=== PATIENT | male | born 2000 | race Caucasian/White ===

== ENCOUNTER 2024-04-07 04:11 | Emergency (ER) | payer OTHER, SELFPAY ==
[2024-04-07 04:19] VITALS: BP 124/67; PULSE 76; RESP 16; TEMP 36.3; O2SAT 98; BMI 28.7
--- NOTE | 2024-04-07 04:30 | ED_ITS ---
HPI - General Adult General Chief complaint: Extremity Pain/Injury, Upper Stated complaint: drove pick through left hand Time Seen by Provider: 04/07/24 04:30 History of Present Illness HPI narrative: Patient c/o injury to left hand at 0030 tonight while at work. Patient had a metal pick inserted into his hand. Bleeding controlled. Patient denies pain. Normal ROM. CMS intact . 24-year-old man presenting to the emergency department after injuring his left hand at work. Works at [employer] and and they have slim mental pick hand will that is used in a variety of ways. Unfortunately he slipped and put it through the left hand. He is been contained. State finish out of shift. No peripheral numbness tingling or weakness. Able to verify that due for tetanus/Tdap this year. Review of Systems Status of ROS: Reports: 6 or more systems reviewed and unremarkable except as noted in History and below [facility] Social History Smoking Status: Unknown if ever smoked Non-prescribed substance use: denies use service: No Exam Narrative: Exam Narrative: Pleasant. NAD. Skin is warm and dry. Moving extremities without difficulty. Opens and closes left hand in question without difficulty. There is a puncture wound in the left thumb and index finger interspace that appears to have just continued through over length of an inch in half to 2 in. Not actively bleeding. There is some dried blood at entrance and exit. No significant hematoma. Again no apparent loss of function or sensation. Const: Vital Signs, click to edit/add: Vital Signs - 24 hr 04/07/24 04:19 Temperature 97.3 F L Pulse Rate [Left P ulse Oximeter] 76 Respiratory Rate 16 Blood Pressure [Ri ght Upper Arm] 124/67 Pulse Oximetry 98 Oxygen Delivery Me thod Room Air Documenting provider has reviewed patient's vital signs: yes Course Vital Signs Vital signs: Initial Vital Signs Temperature 97.3 F L 04/07/24 04:19 Temperature Source Temporal Artery Scan 04/07/24 04:19 Pulse Rate 76 04/07/24 04:19 Respiratory Rate 16 04/07/24 04:19 Blood Pressure 124/67 04/07/24 04:19 Blood Pressure Mean 86 04/07/24 04:19 Blood Pressure Position Semi-Fowlers 04/07/24 04:19 Pulse Oximetry 98 04/07/24 04:19 Oxygen Delivery Method Room Air 04/07/24 04:19 Vital Signs Temperature 97.3 F L 04/07/24 04:19 Pulse Rate 76 04/07/24 04:19 Respiratory Rate 16 04/07/24 04:19 Blood Pressure 124/67 04/07/24 04:19 Pulse Oximetry 98 04/07/24 04:19 Oxygen Delivery Method Room Air 04/07/24 04:19 Temperature 97.3 F L 04/07/24 04:19 Pulse Rate 76 04/07/24 04:19 Respiratory Rate 16 04/07/24 04:19 Blood Pressure 124/67 04/07/24 04:19 Pulse Oximetry 98 04/07/24 04:19 Oxygen Delivery Method Room Air 04/07/24 04:19 Medications Administered Medications: Discontinued Medications Generic Name Dose Route Start Last Admin Trade Name Freq PRN Reason Stop Dose Admin Diphtheria/Tetanus/Acell Pertussis 0.5 ml 04/07/24 04:45 04/07/24 05:02 Tetanus/Diphth/Pertussis 0.5 Ml Syringe IM 04/07/24 04:46 0.5 ml .ONCE ONE Administration Medical Decision Making MDM Narrative Medical decision making narrative: Wound is generally clean. At the entrance it measures about 3/16th of an inch of irregular puncture; I do not think this requires or would benefit from suturing, in fact probably better to leave it open. I do not think any imaging either is required. Does not sound as though there is concern of foreign body otherwise. And does not appear to have encroached on bony areas. Soaking here in antibiotic soap and water. Antibiotic ointment and bandage. Update Tdap. See patient discharge plan for further discussion Discharge Plan Discharge Clinical Impression: Puncture wound of hand Patient Disposition: Home w/ Parent or Adult Condition: Stable Instructions: Puncture Wound (ED) Additional Instructions: Recommendations are to soak your hand in warm soapy or Epsom salt water once or twice daily over the next 3 days. Watch for spreading redness after 2 days, marked increase in swelling/pain/heat, purulent drainage. Antibiotic ointment and Band-Aid for 4 days. Cover with Band-Aid probably over the next week generally. Follow Up/Referrals: Provider,Not a Local [Primary Care Provider] - Stand Alone Forms: [facility] Info Instructions
--- OUTSIDE RECORDS SUMMARY | 2024-04-07 04:48 | XMS_ITS | Encounter Summary ---
Author Organization [place] Address [facility] [place] [address] Care Team Providers Care Recruiting Scheduler Name Role Phone No Ref-Primary, Physician Primary Care Provider Sergo Toure MD Unavailable [phone] Alen Grant MD Unavailable [phone] Encounter Details Date Type Department Care Team (Late st Contact Info) Description 06/26/2020 [facility] [address] [address] [place] [address] [place] [address] Social History Tobacco Use Types Packs/Day Years Used Date Smoking Tobacco: Never Smokeless Tobacco: Never Alcohol Use Standard Drinks/Week Comments Never 0 (1 standard drink = 0.6 oz pur e alcohol) AUDIT-C Answer Date Recorded Q1: How often do you have a drink containing alc ohol? Never 12/22/2019 Average Number of Drinks Not on file 020 Frequency of Binge Drinking Not on file 12/01 Sex and Gender Information Value Date Recorded Sex Assigned at Not on file Gender Identity Not on file Sexual Orientation Not on file documented as of this encounter Plan of Treatment Not on file documented as of this encounter Visit Diagnoses Not on filedocumented in this encounter Care Teams Recruiting Scheduler Relationship Specialty Start Date End Date No Ref-Primary, Physician PCP - General 12/29/19 [place] [id number] [place] [address] Assigned PCP 12/10/19 05/17/22 Alen Grant MD [address] [place] [address] Assigned Musculoskeletal Provider 06/23/20 10/13/21 documented as of this encounter
--- OUTSIDE RECORDS SUMMARY | 2024-04-07 04:48 | XMS_ITS | Encounter Summary ---
Author Organization [place] Address [facility] [place] [address] Care Team Providers Care Project Design Engineer Name Role Phone No Ref-Primary, Physician Primary Care Provider Sergo Toure MD Unavailable [phone] Alen Grant MD Unavailable [phone] Encounter Details Date Type Department Care Team (Late st Contact Info) Description 10/20/2020 [facility] [address] [facility], [address] [place] [address] Gisela White ATC Social History Tobacco Use Types Packs/Day Years [...] on filedocumented in this encounter Care Teams Project Design Engineer Relationship Specialty Start Date End Date No Ref-Primary, Physician PCP - General 12/29/19 [place] [id number] [facility]michelesandra Veloz [place], [place] [id number] Assigned PCP 12/10/19 05/17/22 Alen Grant MD [address] [place] [address] Assigned Musculoskeletal Provider 06/23/20 10/13/21 documented as of this encounter
--- OUTSIDE RECORDS SUMMARY | 2024-04-07 04:48 | XMS_ITS | Referral Summary ---
Author Organization [place] Address [facility] [place] [address] Care Team Providers Care Outreach Professional Name Role Phone No Ref-Primary, Physician Primary Care Provider Allergies No known active allergies Medications Medication Sig Dispensed Refills Start Date End Date Status order for DMEIndications:Knee injury, right, initial encounter Equipment being ordered: pair of crutches 1 Device 12/22/2019 Active order for DMEIndications:Knee injury, right, initial encounter Equipment being ordered: knee sleeve 1 Device 12/22/2019 Active Active Problems Problem Noted Date Diagnosed Date Bucket-handle tear of latera l meniscus of right knee as current injury, initial encounter 2020 Overview: Added automatically from request for surgery [id number] Acute pain of right knee 2020 Overview: Added automatically from request for surgery [id number] Locked knee, right 2020 Overview: Added automatically from request for surgery [id number] Resolved Problems Problem Noted Date Diagnosed Date Resolved Date Tear of lateral cartilage or meniscus of knee, current 01/14/2020 09/21/2020 Aftercare following surgery of the musculoskeletal system 01/14/2020 09/21/2020 Immunizations Name Administration Dates Next Due Comvax (HIB/HepB) 01/06/2003,2002,03/08/20 02 DTAP (<7y) 03/17/2007, 3,2002, 002,2002 Influenza (IIV3) PF 09/08/2012,2002,2001 Influenza, seasonal, injectable, PF 06/10/2011 MMR 03/17/2007,01/06/2003 Meningococcal ACWY (Menveo??) 04/18/2014 Pneumococcal (PCV 7) 01/06/2003,07/27/20 02,2002, 002 Poliovirus, inactivated (IPV) 03/17/2007 ,2002,2002, 002 TDAP Vaccine (Adacel) 04/18/2014 Varicella 03/17/2007,01/06/2003 Social History Tobacco Use Types Packs/Day Years Used Date Smoking Tobacco: Never Smokeless Tobacco: Never Tobacco Cessation:Counseling Given: Yes Alcohol Use Standard Drinks/Week Comments Never 0 (1 standard drink = 0.6 oz pur e alcohol) AUDIT-C Answer Date Recorded Q1: How often do you have a drink containing alc ohol? Never 12/22/2019 Average Number of Drinks Not on file 020 Frequency of Binge Drinking Not on file 12/01 Adolescent Education Answer Date Record ed Getting School Help Needed Not on file 05/24 Sex and Gender Information Value Date Recorded Sex Assigned at Not on file Gender Identity Not on file Sexual Orientation Not on file Last Filed Vital Signs Vital Sign Reading Time Taken Comments Blood Pressure 122/85 04/10/2020 10:13 AM CDT Pulse 77 01/07/2020 2:37 PM CDT Temperature 37.6 ??C (99.6 ??F) 02/14/2020 9:27 PM CD T Respiratory Rate 20 02/14/2020 9:27 PM CDT Oxygen Saturation 100% 02/15/2020 12:30 AM CDT Inhaled Oxygen Concentration - - Weight 83 kg (183 lb) 04/10/2020 10:13 AM CDT Height 177.8 cm (5' 10) 04/10/2020 10:13 AM CDT Body Mass Index 26.26 04/10/2020 10:13 AM CDT Plan of Treatment Not on file Care Teams Outreach Professional Relationship Specialty Start Date End Date No Ref-Primary, Physician PCP - General 12/29/19
--- OUTSIDE RECORDS SUMMARY | 2024-04-07 04:48 | XMS_ITS | Clinical Summary ---
Author Organization [place] Address [address] [place] [address]. [place] [address] Care Team Providers Care Supervisor Assembly And Packing Name Role Phone No Ref-Primary, Physician Primary [...] Overview: Added automatically from request for surgery [id number] Acute pain of right knee 2020 Overview: Added automatically from request for surgery [id number] Locked knee, right 2020 Overview: Added automatically from request for surgery [id number] Resolved Problems Problem Noted Date Diagnosed Date [...] of Treatment Not on file Care Teams Supervisor Assembly And Packing Relationship Specialty Start Date End Date No Ref-Primary, Physician PCP - General 12/29/19
[2024-04-07] MEDS: TETANUS/DIPHTH/PERTUSSIS 0.5 ML SYRINGE IM (05:02)
== END 2024-04-07 05:05 | disposition home or self-care (01) ==
PROVIDERS: Emergency Provider Family Medicine
DX: S61.432A Puncture wound without foreign body of left hand, initial encounter (principal); W22.8XXA Striking against or struck by other objects, initial encounter
CPT/HCPCS: 90471; 90715; 99283; 99284